=== PATIENT | female | born 1960 | race Caucasian/White ===

== ENCOUNTER 2017-01-21 06:08 | Day surgery (SDC) | payer OTHER ==
[~2017-01-21] VITALS: Ht 152.4 cm; Wt 52.5 kg
[~2017-01-21 06:08] MED LIST: [UNRECOGNIZED DRUG - REMARK]; [UNRECOGNIZED DRUG - REMARK]; [UNRECOGNIZED DRUG - REMARK]
[2017-01-21 06:55] VITALS: Ht 152.4 cm; Wt 52.5 kg
[2017-01-21 07:11] VITALS: BP 132/81; PULSE 73; RESP 18
[2017-01-21] MEDS ORDERED: colace PO (07:25)
[2017-01-21] MEDS ORDERED: omeprazole PO (07:25)
[2017-01-21 07:53] VITALS: BP 114/71; RESP 20
[2017-01-21] MEDS ORDERED: MIDAZOLAM 1 MG/ML 2 ML INJ ONE (08:29)
[2017-01-21] MEDS ORDERED: FENTAnyl 50 MCG/ML VIAL ONE (08:29)
--- NOTE | 2017-01-21 09:07 | GILP ---
DATE OF PROCEDURE: NAME OF PROCEDURES: Esophagogastroduodenoscopy and biopsy. SURGEON: Binh Bradford MD PREOPERATIVE DIAGNOSES: 1. Abdominal pain. 2. Chronic heartburn. POSTOPERATIVE DIAGNOSES: 1. Gastroesophageal reflux disease. 2. Gastritis with erosions. 3. Gastric mucosal biopsies were taken for Helicobacter pylori test. INDICATION FOR THE PROCEDURE: Ms. Felecia Hussein is a 56-year-old female patient who had upper a bdominal pain and chronic heartburn, not responding to therapy. Patient was scheduled for endoscopi c examination for further evaluation. The procedure and possible complications are well explained to the patient, she understood and conse nted to the procedure. DESCRIPTION OF PROCEDURE: Under the influence of fentanyl and Versed, the gastroscope was carefully introduced into the esophagus and under direct vision, it was advanced to the stomach and through t he pylorus into the duodenal bulb and descending duodenum. FINDINGS: ESOPHAGUS: The patient had gastroesophageal reflux disease. STOMACH: She had gastritis with erosions. Gastric mucosal biopsies were taken for H. pylori test. DUODENUM: Normal. She tolerated the procedure very well and there was no complication from the procedure. At the end of the procedure, she was awake with stable vital signs and she was discharged home to the care of h family. IMPRESSION: 1. Gastroesophageal reflux disease. 2. Gastritis with erosions. 3. Gastric mucosal biopsies were taken for Helicobacter pylori test. PLAN: 1. Continue omeprazole. 2. Add Zantac 300 mg p.o. at bedtime. 3. Await H. pylori test report. Dictated By: BINH MILLARD/JOHN Conf#: [id number] DID#: [id number]
== END 2017-01-21 10:39 | disposition home or self-care (01) ==
LOC: GIL 06:08
PROVIDERS: ATTEND Internal Medicine Gastroenterology
DX: K21.9 Gastro-esophageal reflux disease without esophagitis (principal); K29.60 Other gastritis without bleeding
CPT/HCPCS: 43239; 87081; J2250; J3010; Z7610